=== PATIENT | male | born 1960 | race Caucasian/White ===

== ENCOUNTER 2023-10-04 06:40 | Day surgery (SDC) | payer BC, SELFPAY ==
[2023-09-22 06:35] VITALS: BMI 29.9
[2023-09-22 09:00] LABS: Hematocrit 40.9 % (39.0-52.0); Hemoglobin 13.6 g/dL (13.0-18.0); Mean Corp Hgb Conc. 33.3 g/dL (33.0-37.0); Mean Corpuscular Volume 93.2 fL (80.0-94.0); Mean Platelet Volume 10.1 fL (7.4-10.4); Platelet Count 278 10^3/uL (130-400); Red Blood Cell Count 4.39 10^6/uL (4.70-6.10); Red Cell Dist. Width 12.5 % (11.5-14.5); White Blood Cell Count 6.7 10^3/uL (4.8-10.8)
[2023-09-22 10:59] LABS: Blood Urea Nitrogen 18 mg/dl (9-20); Calcium 9.8 mg/dl (8.4-10.2); Carbon Dioxide 25 mmol/L (22-30); Chloride 103 mmol/L (98-107); Estimated Creatinine Clearance 69 ml/min; Glucose 80 mg/dl (70-99); Potassium 5.5 mmol/L (3.5-5.1); Sodium 138 mmol/L (135-145); eGFR > 60.00
--- NOTE | 2023-09-22 14:58 | PTCARENOTE ---
Abnormal EKG reviewed by Dr. Azar, he stated pt will need a cardiac clearance. Rachel in Dr. De Santiago's office made aware.
--- NOTE | 2023-09-28 09:43 | PTCARENOTE ---
K+ 5.5 collected on 09/22/23; Rachel at 's office was notified.
--- NOTE | 2023-09-28 15:33 | PTCARENOTE ---
Patients 09/21 potassium 5.5- Dr Sierra notified- to be repeated day of surgery.
[2023-10-04] VITALS (9 sets, daily range): BP systolic 120–154; BP diastolic 72–86; BMI 29.9
--- NOTE | 2023-10-04 07:21 | HP.FOC2 ---
Focused History & Physical
Chief Complaint
HPI:
Chief Complaint: Umbilical hernia
HPI / Indication for Planned Procedure: Patient is a 63-year-old male recently seen in outpatient surgical evaluation secondary to a longstanding history of a swelling in his umbilical stalk area. It is slowly enlarged in size over the years and he
now has an awareness of his hernia being present on a daily basis with occasional discomfort. No additional GI or symptoms. No past abdominal surgical history.
Relevant Past Medical History: Other (Hypertension, hypercholesterolemia)
Relevant Social History: Negative and Tobacco Use (Former smoker greater than 10 years ago)
Relevant Family History: Negative
Relevant Past Surgical History: Positive for (Cardiac catheterization 2004)
Review of Systems
Review of Pertinent Systems: All Systems Negative
Medication
See Medication form for detailed medications: Yes
Medication List (including Herbals & OTC):
aspirin 81 mg chewable tablet 81 mg PO DAILY 09/28/23
metoprolol succinate 100 mg tablet,extended release 24 hr 100 mg PO DAILY 09/28/23
rosuvastatin 20 mg tablet 20 mg PO DAILY 09/28/23
valsartan 160 mg-hydrochlorothiazide 12.5 mg tablet 1 tab PO DAILY 09/28/23
Medications Reviewed: Yes
Allergies and Reactions
Patient has Allergies: Yes
Noted Allergies and Reactions:
Allergy/AdvReac Type Severity Reaction Status Date / Time
Penicillins Allergy Unknown Verified 09/28/23 09:58
Pertinent Physical Exam
All Other Systems: Negative
Head/Neck: Normal
Lungs: Normal
Heart: Normal
Abdomen: Other (Soft reducible umbilical hernia, approximately 2 cm fascial defect) and Other (Central abdominal wall diastases recti without ventral hernia)
Extremities: Normal
Neurological: Normal
Diagnosis / Assessment
63-year-old male presented for scheduled operative correction symptomatic umbilical hernia
Plan / Procedure
Robotic assisted laparoscopic repair umbilical hernia with mesh
Anesthesia/Sedation to be done by Anesthesia Provider: Yes
[2023-10-04] MEDS: NORMOSOL-R 1000 IV (08:50)
[2023-10-04] MEDS: VANCOCIN 300 ML IV (08:52)
[2023-10-04] MEDS: VANCOCIN 300 MG IV (08:52)
[2023-10-04] MEDS: TYLENOL 1000 MG PO (08:56)
--- NOTE | 2023-10-04 09:21 | W.SUR.PREOP ---
Pre-Operative Surgical Note
-
I have examined this patient prior to the performance of the scheduled procedure.
The patient's condition is unchanged from the time of the current History and
Physical and the patient is able to undergo the scheduled procedure.
--- NOTE | 2023-10-04 11:48 | W.IMMPOSTOP ---
Addendum entered and electronically signed by Caleb De Santiago MD 10/04/23 12:01:
#[id number]
Original Note:
Surgical Immed Post Op Note
-
Primary Surgeon: Anyi
Assisting Surgeon: Cally Bates PA-C
Pre-op Diagnosis: UH
Post-op Diagnosis: UH 2cm
Procedure Performed: RAL KARLA UH repair with mesh; 14cm x 10cm soft mesh
Anesthesia Type: GETA + 0.25% Marcaine
Specimen / Cultures: none
Estimated Blood Loss: 6mL
Complications: none immediate
Operative Findings: reducible UH ~2cm fascial defect. sub centimeter smaller VH or 2 superior along diastasis also covered by repair.
0 PDS closure of UH defect. underlay preperitoneal repair 14cm vertically x 10cm wide soft mesh secured with 2-0 Vicryl.
The assistance of Cally Bates PA-C was required due to the complexity of the procedure. During the procedure Cally Bates PA-C assisted with retraction, robotic instrumentation/suture exchanges, mesh placement, and closure of the incisions.
[2023-10-04] MEDS: DILAUDID 0.25 MG IV ×2 (12:13→12:30)
[2023-10-04] MEDS: MOTRIN 600 MG PO (13:30)
== END 2023-10-04 13:50 | disposition home or self-care (01) ==
LOC: SDS 06:40
PROVIDERS: ATTENDING PHYSICIAN Surgery; FAMILY PHYSICIAN Family Medicine
DX: K42.9 Umbilical hernia without obstruction or gangrene (principal)
CPT/HCPCS: 49591; 36415; 80048; 85027; 93005; C1781

== ENCOUNTER 2024-07-06 06:21 | Day surgery (SDC) | payer MEDICARE, SELFPAY | END 2024-07-06 12:56 | disposition home or self-care (01) | LOC: GI 06:21 | PROVIDERS: ATTENDING PHYSICIAN Internal Medicine Gastroenterology | DX: Z12.11 Encounter for screening for malignant neoplasm of colon (principal); D12.2 Benign neoplasm of ascending colon; K63.5 Polyp of colon; K57.30 Diverticulosis of large intestine without perforation or abscess without bleeding; K64.8 Other hemorrhoids; Z86.0101 Personal history of adenomatous and serrated colon polyps | CPT/HCPCS: 45380; 88305 ==